=== PATIENT | female | born 1995 | race Caucasian/White ===

== ENCOUNTER 2016-12-13 19:41 | Inpatient (IN) | payer BC ==
[2016-12-13] MEDS ORDERED: ONDANSETRON HCL INJ/PF 4 MG/2 ML SDV ONE (19:47)
[2016-12-13] MEDS ORDERED: ONDANSETRON HCL INJ/PF 4 MG/2 ML SDV IV ONE (19:50)
[2016-12-13] MEDS ORDERED: NORMAL SALINE 1000 ML 1,000 ML IV ONE (19:50)
[2016-12-13] MEDS ORDERED: MAGNESIUM SULFATE/D5W 2 GM/200 ML RTUPB IV ONE (19:56)
[2016-12-13] MEDS ORDERED: IBUPROFEN 600 MG TABLET PO ONE (19:57)
[2016-12-13 19:58] LABS: ABSOLUTE LYMPHOCYTES (AUTO) 1.5 10^3/uL (0.5-4.7); ABSOLUTE MONOCYTES (AUTO) 0.8 10^3/uL (0.1-1.4); ABSOLUTE NEUT (AUTO) 7.9 10^3/uL (1.7-8.2); BASOPHILS % (AUTO) 0.4 % (0-2); EOSINOPHILS % (AUTO) 0.4 % (0-6); HEMATOCRIT 41.1 % (36.0-47.0); HEMOGLOBIN 13.6 g/dL (12.0-15.5); HGB HCT DIFFERENCE -0.3; LYMPHOCYTES % (AUTO) 14.3 % (13-45); MEAN CORPUSCULAR HEMOGLOBIN 27.2 pg (27.0-33.4); MEAN CORPUSCULAR HGB CONC 33.2 g/dL (32.0-36.0); MEAN CORPUSCULAR VOLUME 82 fl (80-97); MONOCYTES % (AUTO) 7.6 % (3-13); RED BLOOD COUNT 5.01 10^6/uL (3.72-5.28); RED CELL DISTRIBUTION WIDTH 13.5 % (11.5-14.0); SEGMENTED NEUTROPHILS % (AUTO) 77.3 % (42-78); WHITE BLOOD COUNT 10.2 10^3/uL (4.0-10.5)
[2016-12-13] MEDS ORDERED: ALBUTEROL SULFATE 0.083% NEB 2.5 MG/3 ML AMPUL NEB ONE ×3 (19:58→21:29)
[2016-12-13] MEDS ORDERED: ACETAMINOPHEN 325 MG TABLET ONE (19:59)
[2016-12-13] MEDS ORDERED: MAGNESIUM SULFATE/D5W 100 ML IV SCH (20:00)
--- NOTE | 2016-12-13 20:00 | ER Document Report ---
ED General - General Stated Complaint: BREATHING DIFFICULTY Cannot obtain history due to: Unstable vital signs Notes: Patient is a 21-year-old female with past medical history of what appears to be an asthma exacerbation approximately one year ago that required intubation and prolonged hospitalization presents with 2 days of progressively worsening shortness of breath now to the point where she feels that she cannot breathe. History is limited secondary to patient's severe respiratory distress at time of assessment. She states this feels much when she required intubation in the past. She has not had any fever, vomiting or diaphoresis. She is not using anything to treat her symptoms at home. Nothing is been noted to worsen her symptoms. She is not seen in her primary care doctor regarding today's concerns. - Related Data Allergies/Adverse Reactions: oxycodone Allergy (Verified 12/13/16 20:40) Home Medications: Current Home Medications Fluoxetine HCl [Prozac] 60 mg PO DAILY 12/13/16 [History] Metformin HCl 500 mg PO BID 12/13/16 [History] Past Medical History - General Information source: Patient - Social History Smoking Status: Never Smoker Frequency of alcohol use: None Drug Abuse: None Family History: Reviewed & Not Pertinent Review of Systems - Review of Systems Notes: Constitutional: Negative for fever. HENT: Negative for sore throat. Eyes: Negative for visual changes. Cardiovascular: Negative for chest pain. Respiratory: Positive for shortness of breath. Gastrointestinal: Negative for abdominal pain, vomiting or diarrhea. Genitourinary: Negative for dysuria. Musculoskeletal: Negative for back pain. Skin: Negative for rash. Neurological: Negative for headaches, weakness or numbness. 10 point ROS negative except as marked above and in HPI. Physical Exam - Vital signs Vitals: Temp Resp Pulse Ox 99.6 F 36 H 96 12/13/16 19:57 12/13/16 19:57 12/13/16 19:57 Interpretation: Tachycardic, Tachypneic Notes: PHYSICAL EXAMINATION: GENERAL: In severe respiratory distress HEAD: Atraumatic, normocephalic. EYES: Pupils equal round and reactive to light, extraocular movements intact, sclera anicteric, conjunctiva are normal. ENT: nares patent, oropharynx clear without exudates. Dry mucous membranes. NECK: Normal range of motion, supple without lymphadenopathy LUNGS: Tight air movement bilaterally with wheezing in all lung dale and expiratory phase. Severe tachypnea with respiratory rate of 42 at the time of initial assessment. HEART: Regular tachycardia without murmurs ABDOMEN: Soft, nontender, normoactive bowel sounds. No guarding, no rebound. No masses appreciated. EXTREMITIES: Normal range of motion, no pitting or edema. No cyanosis. NEUROLOGICAL: No focal neurological deficits. Moves all extremities spontaneously and on command. PSYCH: Anxious SKIN: Warm, Dry, normal turgor, no rashes or lesions noted. Course - Re-evaluation Re-evalutation: 12/13/16 19:59 Patient presents in moderate respiratory distress with tachypnea, respiratory rate is 32 at the time of my assessment. She is retracting in the supraclavicular region. She has poor air movement bilaterally with a prolonged expiratory phase and severe expiratory wheezing in all lung dale. She has required intubation in the past for similar presentation. Immediately upon my assessment, patient was started on continuous albuterol nebulizers. She has already received 2 DuoNeb's. She has already received 125 of IV Solu-Medrol. She will be given 2 g of magnesium over 20 minutes. IV fluids have been started. Patient has been placed on a wardrobe specialty worker and a stat portable chest x-ray to be obtained. Patient is critically ill at this time due to respiratory distress and is at elevated risk for respiratory compromise and decompensation. She will require frequent reassessments. 12/13/16 20:11 Patient's respiratory effort is acting slightly worsened, now breathing at 38- 40 times a minute. Maintains her oxygen saturation at 100% at this time. She will be started on BiPAP with in-line. Magnesium is being initiated at this time. EKG demonstrates sinus tachycardia otherwise unremarkable. 12/13/16 20:22 Patient's work of breathing continues to be elevated and she is quite anxious. She is moving air much better now on BiPAP and her wheezing is now diminished relative to the initial presentation. Given her anxiety and difficulty tolerating the BiPAP, will give a low dose of ketamine 10 mg IV 12/13/16 21:00 Patient had significant improvement of her work of breathing with a low dose of ketamine states that her anxiety about BiPAP is also much better at this time. Air movement has improved dramatically relative to her initial presentation. Continues with wheezing in all lung dale on the x-ray phase. Will continue to observe on BiPAP 2127-after the initial 20 mg of albuterol had completed come patient is now complaining that her breathing is again worsening and she feels more tight. Lung exam is overall unchanged. Will start an additional 10 mg of albuterol inhaled and then additional low-dose of IV ketamine 12/13/16 21:43 Patient now has clear breath sounds bilaterally and excellent air movement. She continues to be mildly tachypneic, respiratory rate is 32 at time of my assessment. She still is only able to talk 3-4 words without requiring of breath. However, overall her picture is much improved relative to her initial presentation. She will require admission and I discussed this case with Dr. Florencio Schmidt who has accepted the patient. - Vital Signs Vital signs: Temp Pulse Resp BP Pulse Ox 98.9 F 123 H 26 H 109/40 L 99 12/13/16 23:12 12/13/16 23:12 12/13/16 23:12 12/13/16 23:12 12/13/16 23:12 - Laboratory Result Diagrams: 12/13/16 19:47 12/13/16 19:47 Laboratory results interpreted by me: 12/13/16 12/13/16 19:47 21:43 VBG pCO2 25.9 L VBG HCO3 15.6 L Calcium 10.3 H AST 97 H ALT 125 H Total Protein 8.6 H - Diagnostic Test Radiology reviewed: Image reviewed, Reports reviewed Radiology results interpreted by me: 12/13/16 21:44 Chest x-ray: No acute infiltrate - EKG Interpretation by Me Additional EKG results interpreted by me: 12/13/16 20:12 Sinus tachycardia. Rate 143. No ST elevations or depressions. QTC 426. Critical Care Note - Critical Care Note Total time excluding time spent on procedures (mins): 40 Comments: Critical care time spent obtaining history from patient or surrogate, discussions with consultants, development of treatment plan with patient or surrogate, evaluation of patient's response to treatment, examination of patient , ordering and performing treatments and interventions, ordering and review of laboratory studies, re-evaluation of patient's condition, ordering and review of radiographic studies and review of old charts Discharge - Discharge Clinical Impression: Respiratory distress, Asthma exacerbation Disposition: ADMITTED INPATIENT Admitting Provider: [facility] Admitted: Telemetry
[2016-12-13 20:11] LABS: ALANINE AMINOTRANSFERASE 125 U/L (9-52); ALBUMIN 4.8 g/dL (3.5-5.0); ALKALINE PHOSPHATASE 71 U/L (38-126); ANION GAP 15 (5-19); ASPARTATE AMINO TRANSFERASE 97 U/L (14-36); BILIRUBIN,TOTAL 0.7 mg/dL (0.2-1.3); BLOOD UREA NITROGEN 8 mg/dL (7-20); CALCIUM 10.3 mg/dL (8.4-10.2); CARBON DIOXIDE 25 mmol/L (22-30); CHLORIDE 101 mmol/L (98-107); CREATININE RESULT 1.14 mg/dL (0.52-1.25); GLUCOSE 103 mg/dL (75-110); POTASSIUM 3.8 mmol/L (3.6-5.0); TOTAL PROTEIN 8.6 g/dL (6.3-8.2)
[2016-12-13] MEDS ORDERED: KETAMINE HCL INJ 500 MG/10 ML VIAL ONE (20:21)
[2016-12-13] MEDS ORDERED: KETAMINE HCL INJ 500 MG/10 ML VIAL IV ONE ×2 (20:22→21:28)
[2016-12-13] MEDS ORDERED: LACTULOSE SYRUP 20 GM/30 ML UDCUP PO ONE (21:45)
[2016-12-13] MEDS ORDERED: IPRATROPIUM/ALBUTEROL 0.5-2.5 MG/3 ML AMPUL NEB PRN (21:45)
[2016-12-13] MEDS ORDERED: ACETAMINOPHEN 325 MG TABLET PO PRN (21:46)
[2016-12-13] MEDS ORDERED: GUAIFENESIN SYRP 200 MG/10 ML UDC PO PRN (21:46)
[2016-12-13 21:50] LABS: VENOUS BLOOD BASE EXCESS -7.5 mmol/L; VENOUS BLOOD HCO3 15.6 mmol/L (20-32); VENOUS BLOOD PCO2 25.9 mmHg (35-63); VENOUS BLOOD PH 7.4 (7.30-7.42)
[2016-12-13] MEDS: FLUTICASONE NASAL SPRAY 50 MCG/SPRY 120 SPRAY/16 GM NASL SCH (22:25)
[2016-12-13] MEDS: HEPARIN SOD (PORCINE) 5,000 UNIT/ML 1 ML SYRINGE SUBCUT SCH (22:27)
[2016-12-13] MEDS: METHYLPREDNISOLONE INJ 125 MG/2 ML SDV IV SCH (22:31)
[2016-12-14] MEDS ORDERED: GLUCAGON,HUMAN RECOMB 1 MG INJ IM PRN (01:08)
[2016-12-14] MEDS ORDERED: DEXTROSE 50%-WATER 25 GM/50 ML DISP.SYRIN IV PRN ×2 (01:08)
[2016-12-14] MEDS ORDERED: DEXTROSE 40% GEL 15 GM TUBE PO PRN ×2 (01:08)
[2016-12-14] MEDS ORDERED: CLINDAMYCIN 900 MG/D5W RTU 50 ML IV ONE (01:30)
[2016-12-14] MEDS: IPRATROPIUM/ALBUTEROL 0.5-2.5 MG/3 ML AMPUL NEB SCH ×4 (02:16→21:26)
--- NOTE | 2016-12-14 04:48 | PDOC H&P ---
History of Present Illness Admission Date/PCP: 12/13/16 21:46 Patient complains of: Shortness of breath History of Present Illness: YARITZA VALENCIA is a 21 year old female with a past medical history of diabetes and obesity who had been her usual state of health until approximately 1 hour prior to presentation with severe shortness of breath and expiratory wheeze. Patient had recently recovered from influenza pneumonia within the week and has had a residual soreness to the anterior neck without drooling or stridor. In the emergency room she received several albuterol treatments in addition to magnesium and ketamine and was transferred to the hospitalist for admission. Patient denies new medication, previous episode, exposure to any smoke or obvious trigger. On evaluation she does have mild upper airway wheeze that clears with maximal respiratory effort on auscultation. Past Medical History Cardiac Medical History: Reports: None Pulmonary Medical History: Reports: None EENT Medical History: Reports: None Neurological Medical History: Reports: None Endocrine Medical History: Reports: Diabetes Mellitus Type 2, Obesity Renal/ Medical History: Reports: None Malignancy Medical History: Reports: None GI Medical History: Reports: None Musculoskeltal Medical History: Reports: None Skin Medical History: Reports: None Psychiatric Medical History: Reports: None, Depression Social History Information Source: Patient Lives with: Family Smoking Status: Never Smoker Frequency of Alcohol Use: None Hx Recreational Drug Use: No Hx Prescription Drug Abuse: No - Advance Directive Resuscitation Status: Full Code Family History Family History: Hypertension Parental Family History Reviewed: Yes Children Family History Reviewed: Yes Sibling(s) Family History Reviewed.: Yes Medication/Allergy Home Medications: Fluoxetine HCl [Prozac] 60 mg PO DAILY 12/13/16 Metformin HCl 500 mg PO BID 12/13/16 Allergies/Adverse Reactions: oxycodone Allergy (Verified 12/13/16 20:40) Review of Systems Constitutional: ABSENT: chills, fever(s), headache(s), weight gain, weight loss Eyes: ABSENT: visual disturbances Ears: ABSENT: hearing changes Cardiovascular: ABSENT: chest pain, dyspnea on exertion, edema, orthropnea, palpitations Respiratory: ABSENT: cough, hemoptysis Gastrointestinal: ABSENT: abdominal pain, constipation, diarrhea, hematemesis, hematochezia, nausea, vomiting Genitourinary: ABSENT: dysuria, hematuria Musculoskeletal: ABSENT: joint swelling Integumentary: ABSENT: rash, wounds Neurological: ABSENT: abnormal gait, abnormal speech, confusion, dizziness, focal weakness, syncope Psychiatric: ABSENT: anxiety, depression, homidical ideation, suicidal ideation Endocrine: ABSENT: cold intolerance, heat intolerance, polydipsia, polyuria Hematologic/Lymphatic: ABSENT: easy bleeding, easy bruising Physical Exam Vital Signs: Temp Pulse Resp BP Pulse Ox 98.9 F 123 H 26 H 109/40 L 99 12/13/16 23:12 12/13/16 23:12 12/13/16 23:12 12/13/16 23:12 12/13/16 23:12 Intake & Output 12/12/16 12/13/16 12/14/16 11:59 11:59 11:59 Weight 102.5 kg General appearance: PRESENT: no acute distress, cooperative, obese, well- developed, well-nourished Head exam: PRESENT: atraumatic, normocephalic Eye exam: PRESENT: conjunctiva pink, EOMI, PERRLA. ABSENT: scleral icterus Ear exam: PRESENT: normal external ear exam Mouth exam: PRESENT: moist, tongue midline Neck exam: PRESENT: tenderness - Pain to palpation of the anterior cricothyroid. ABSENT: carotid bruit, JVD, lymphadenopathy, thyromegaly Respiratory exam: PRESENT: clear to auscultation amanda, tachypnea. ABSENT: accessory muscle use, prolonged expiratory phas, rales, retraction, rhonchi, wheezes Cardiovascular exam: PRESENT: RRR. ABSENT: diastolic murmur, rubs, systolic murmur Pulses: PRESENT: normal dorsalis pedis pul Vascular exam: PRESENT: normal capillary refill GI/Abdominal exam: PRESENT: normal bowel sounds, soft. ABSENT: distended, guarding, mass, organolmegaly, rebound, tenderness Rectal exam: PRESENT: deferred Extremities exam: PRESENT: full ROM. ABSENT: calf tenderness, clubbing, pedal edema Neurological exam: PRESENT: alert, awake, oriented to person, oriented to place , oriented to time, oriented to situation, CN II-XII grossly intact. ABSENT: motor sensory deficit Psychiatric exam: PRESENT: appropriate affect, normal mood. ABSENT: homicidal ideation, suicidal ideation Skin exam: PRESENT: dry, intact, warm. ABSENT: cyanosis, rash Results Impressions: Chest X-Ray 12/13/16 19:57 IMPRESSION: LOW LUNG VOLUMES. NO SIGNIFICANT RADIOGRAPHIC FINDING IN THE CHEST. Soft Tissue Neck X-Ray 12/14/16 00:00 IMPRESSION: No acute radiographic finding in the soft tissues of the neck. Assessment & Plan - Diagnosis (1) Epiglottitis Is this a current diagnosis for this admission?: YesPlan: Patient was with recent viral prodrome suspect viral epiglottitis however given the chance of decompensation complicated by morbid obesity and diabetes I will treat empirically with clindamycin and obtain soft tissue imaging of the neck. And treat symptomatically (2) Asthma exacerbation Is this a current diagnosis for this admission?: YesPlan: Doubtful given new onset of asthma and lack of expiratory wheeze with exam that said she'll receive symptomatically management with albuterol when necessary (3) Respiratory distress Is this a current diagnosis for this admission?: YesPlan: Symptomatic management with correction of the underlying cause - Time Time Spent: 30 to 50 Minutes
[2016-12-14] MEDS: HEPARIN SOD (PORCINE) 5,000 UNIT/ML 1 ML SYRINGE SUBCUT SCH ×3 (05:12→22:37)
[2016-12-14] MEDS: METHYLPREDNISOLONE INJ 125 MG/2 ML SDV IV SCH ×3 (05:13→22:37)
[2016-12-14] MEDS: LANSOPRAZOLE 30 MG TAB.RAP.DR PO SCH ×2 (05:13→17:09)
[2016-12-14] MEDS ORDERED: FAMOTIDINE INJ/PF 20 MG/2 ML SDV IV ONE ×2 (05:22→05:32)
[2016-12-14] MEDS ORDERED: KETOROLAC TROMETHAMINE INJ/PF 30 MG/1 ML SDV IV ONE (05:23)
[2016-12-14] MEDS ORDERED: KETOROLAC TROMETHAMINE INJ/PF 30 MG/1 ML SDV ONE (05:33)
[2016-12-14] MEDS: INSULIN LISPRO 100 UNIT/ML 3 ML VIAL SUBCUT PRN ×4 (05:39→22:41)
[2016-12-14 06:32] LABS: HEMATOCRIT 36.5 % (36.0-47.0); HEMOGLOBIN 11.6 g/dL (12.0-15.5); HGB HCT DIFFERENCE -1.7; MEAN CORPUSCULAR HEMOGLOBIN 26.3 pg (27.0-33.4); MEAN CORPUSCULAR HGB CONC 31.7 g/dL (32.0-36.0); MEAN CORPUSCULAR VOLUME 83 fl (80-97); RED CELL DISTRIBUTION WIDTH 13.4 % (11.5-14.0); WHITE BLOOD COUNT 13.3 10^3/uL (4.0-10.5)
[2016-12-14 06:45] LABS: ANION GAP 15 (5-19); BLOOD UREA NITROGEN 9 mg/dL (7-20); CALCIUM 9.5 mg/dL (8.4-10.2); CARBON DIOXIDE 18 mmol/L (22-30); CHLORIDE 107 mmol/L (98-107); CREATININE RESULT 0.97 mg/dL (0.52-1.25); GLUCOSE 275 mg/dL (75-110); SODIUM 139.9 mmol/L (137-145)
[2016-12-14 07:13] LABS: POTASSIUM 4.9 mmol/L (3.6-5.0)
[2016-12-14] MEDS ORDERED: CLINDAMYCIN 900 MG/D5W RTU 50 ML IV SCH (08:00)
--- NOTE | 2016-12-14 08:25 | EKG REPORT ---
SEVERITY:- OTHERWISE NORMAL ECG - SINUS TACHYCARDIA : Confirmed by: Kaden Wolf MD 14-Dec-2016 08:24:51
[2016-12-14] MEDS: FLUTICASONE NASAL SPRAY 50 MCG/SPRY 120 SPRAY/16 GM NASL SCH ×2 (11:01→22:38)
[2016-12-14] MEDS: METFORMIN HCL 500 MG TABLET PO SCH ×2 (11:01→17:09)
[2016-12-14] MEDS: LORATADINE 10 MG TABLET PO SCH (11:02)
[2016-12-14] MEDS: FLUOXETINE HCL 20 MG CAPSULE PO SCH (11:02)
[2016-12-14] MEDS: CLINDAMYCIN 900 MG/D5W RTU 50 ML IV SCH ×2 (14:37→22:37)
--- NOTE | 2016-12-14 16:55 | PDOC PROGRESS REPORT ---
Subjective Progress Note for:: 12/14/16 Subjective:: Patient seen on morning rounds. She is resting comfortably in bed. She is no longer on oxygen. Her room oxygen saturation 97%. She states her throat no longer feels like it is closing in. She denies any asthma history. She states she did have flu like symptoms last week. She was recovering from that. She felt yesterday like her throat was closing off it was difficult for her to breathe. She no longer has a feeling at this time. Physical Exam Vital Signs: Temp Pulse Resp BP Pulse Ox 98.0 F 84 20 108/38 L 98 12/14/16 11:49 12/14/16 11:49 12/14/16 11:49 12/14/16 11:49 12/14/16 11:49 Intake & Output 12/13/16 12/14/16 12/15/16 06:59 06:59 06:59 Intake Total 50 Balance 50 Weight 102.5 kg General appearance: PRESENT: no acute distress, obese, well-developed, well- nourished Head exam: PRESENT: atraumatic, normocephalic Eye exam: PRESENT: conjunctiva pink, EOMI, PERRLA. ABSENT: scleral icterus Ear exam: PRESENT: normal external ear exam Mouth exam: PRESENT: moist, tongue midline Throat exam: PRESENT: post pharyngeal erythema Neck exam: ABSENT: carotid bruit, JVD, lymphadenopathy, thyromegaly Respiratory exam: PRESENT: clear to auscultation amanda. ABSENT: rales, rhonchi, wheezes Cardiovascular exam: PRESENT: RRR. ABSENT: diastolic murmur, rubs, systolic murmur Pulses: PRESENT: normal dorsalis pedis pul GI/Abdominal exam: PRESENT: normal bowel sounds, soft. ABSENT: distended, guarding, mass, organolmegaly, rebound, tenderness Rectal exam: PRESENT: deferred Extremities exam: PRESENT: full ROM. ABSENT: calf tenderness, clubbing, pedal edema Neurological exam: PRESENT: alert, awake, oriented to person, oriented to place , oriented to time, oriented to situation, CN II-XII grossly intact. ABSENT: motor sensory deficit Psychiatric exam: PRESENT: appropriate affect, normal mood. ABSENT: homicidal ideation, suicidal ideation Skin exam: PRESENT: dry, intact, warm. ABSENT: cyanosis, rash Results Laboratory Results: 12/14/16 06:21 12/14/16 06:21 12/14/16 12/14/16 06:21 06:21 WBC 13.3 H RBC 4.40 Hgb 11.6 L Hct 36.5 MCV 83 MCH 26.3 L MCHC 31.7 L RDW 13.4 Plt Count 278 Sodium 139.9 Potassium 4.9 D Chloride 107 Carbon Dioxide 18 L Anion Gap 15 BUN 9 Creatinine 0.97 Est GFR ( Amer) > 60 Est GFR (Non-Af Amer) > 60 Glucose 275 H Calcium 9.5 Impressions: Chest X-Ray 12/13/16 19:57 IMPRESSION: LOW LUNG VOLUMES. NO SIGNIFICANT RADIOGRAPHIC FINDING IN THE CHEST. Soft Tissue Neck X-Ray 12/14/16 00:00 IMPRESSION: No acute radiographic finding in the soft tissues of the neck. Assessment & Plan - Diagnosis (1) Epiglottitis Is this a current diagnosis for this admission?: YesPlan: Continue IV steroids today d/c tomorrow if she continues to be asymptomatic. Continue clindamycin. (2) Respiratory distress Is this a current diagnosis for this admission?: YesPlan: Symptoms have completely resolved. Lungs are clear. - Time Time Spent with patient: 25-34 minutes Critical Time spent with patient: 15-24 minutes Medications reviewed and adjusted accordingly: Yes Anticipated discharge: Home
[2016-12-15] MEDS: IPRATROPIUM/ALBUTEROL 0.5-2.5 MG/3 ML AMPUL NEB SCH ×2 (02:22→08:38)
[2016-12-15] MEDS: METHYLPREDNISOLONE INJ 125 MG/2 ML SDV IV SCH (06:39)
[2016-12-15] MEDS: CLINDAMYCIN 900 MG/D5W RTU 50 ML IV SCH (06:39)
[2016-12-15] MEDS: LANSOPRAZOLE 30 MG TAB.RAP.DR PO SCH (06:40)
[2016-12-15] MEDS: HEPARIN SOD (PORCINE) 5,000 UNIT/ML 1 ML SYRINGE SUBCUT SCH (06:40)
[2016-12-15 07:53] VITALS: BP 126/70
[2016-12-15] MEDS: FLUOXETINE HCL 20 MG CAPSULE PO SCH (10:12)
[2016-12-15] MEDS: LORATADINE 10 MG TABLET PO SCH (10:12)
[2016-12-15] MEDS: FLUTICASONE NASAL SPRAY 50 MCG/SPRY 120 SPRAY/16 GM NASL SCH (10:12)
[2016-12-15] MEDS: METFORMIN HCL 500 MG TABLET PO SCH (10:13)
[2016-12-15] MEDS: INSULIN LISPRO 100 UNIT/ML 3 ML VIAL SUBCUT PRN (11:29)
--- NOTE | 2016-12-15 14:12 | PDOC DISCHARGE SUMMARY ---
General - Admit/Disc Date/PCP Admission Date/Primary Care Provider: 12/13/16 21:46 Discharge Date: 12/15/16 - Discharge Diagnosis (1) Epiglottitis Is this a current diagnosis for this admission?: YesSummary: Resolved with steroids and IV antibiotics (2) Respiratory distress Is this a current diagnosis for this admission?: YesSummary: Resolved - Additional Information Resuscitation Status: Full Code Discharge Diet: Diabetic Discharge Activity: Activity As Tolerated Home Medications: Fluoxetine HCl [Prozac] 60 mg PO DAILY 12/13/16 Metformin HCl 500 mg PO BID 12/13/16 Amox Tr/Potassium Clavulanate [Augmentin 875-125 mg Tablet] 1 tab PO BID #20 tablet 12/15/16 Loratadine [Claritin 10 mg Tablet] 10 mg PO DAILY tablet 12/15/16 History of Present Illness Patient complains of: Shortness of breath History of Present Illness: YARITZA VALENCIA is a 21 year old female with past medical history of diabetes and obesity who had been in her usual state of health until approximately 1 hour prior to her presentation at [facility] emergency department on 12/13/2016. Patient states she had recently recovered from the flu week prior. She said she was drooling feeling like her throat was closing with some stridor when he presented to the emergency room. She is very tachypneic with a respiratory rate in the 40s although oxygenating at 100%. She had diminished breath sounds and tachycardia. She was placed on BiPAP and referred to the hospitalist for admission. Hospital Course Hospital Course: She was admitted to the telemetry unit. She was given IV steroids and clindamycin IV overnight. The following morning she had no further stridor, no difficulty swallowing. She was able to be on room air with oxygen saturations of 100%. She had no wheezing or cough. Today she feels well stable, and ready for discharge. Physical Exam Vital Signs: Temp Pulse Resp BP Pulse Ox 97.9 F 73 20 126/70 H 99 12/15/16 11:26 12/15/16 11:26 12/15/16 11:26 12/15/16 11:26 12/15/16 11:26 Intake & Output 12/14/16 12/15/16 12/16/16 06:59 06:59 06:59 Intake Total 50 1674 Balance 50 1674 Weight 102.5 kg 102.5 kg General appearance: PRESENT: no acute distress, obese, well-developed, well- nourished Head exam: PRESENT: atraumatic Eye exam: PRESENT: conjunctiva pink, EOMI, PERRLA. ABSENT: scleral icterus Ear exam: PRESENT: normal external ear exam Mouth exam: PRESENT: moist, tongue midline Throat exam: ABSENT: post pharyngeal erythema, tonsillar erythema, tonsillar exudate, tonsillogmegaly, other Neck exam: ABSENT: carotid bruit, JVD, lymphadenopathy, thyromegaly Respiratory exam: PRESENT: clear to auscultation amanda. ABSENT: rales, rhonchi, wheezes Cardiovascular exam: PRESENT: RRR. ABSENT: diastolic murmur, rubs, systolic murmur Pulses: PRESENT: normal dorsalis pedis pul Vascular exam: PRESENT: normal capillary refill Rectal exam: PRESENT: deferred Extremities exam: PRESENT: full ROM. ABSENT: calf tenderness, clubbing, pedal edema Neurological exam: PRESENT: alert, awake, oriented to person, oriented to place , oriented to time, oriented to situation, CN II-XII grossly intact. ABSENT: motor sensory deficit Psychiatric exam: PRESENT: appropriate affect, normal mood. ABSENT: homicidal ideation, suicidal ideation Skin exam: PRESENT: dry, intact, warm. ABSENT: cyanosis, rash Results Laboratory Results: 12/14/16 06:21 12/14/16 06:21 Impressions: Chest X-Ray 12/13/16 19:57 IMPRESSION: LOW LUNG VOLUMES. NO SIGNIFICANT RADIOGRAPHIC FINDING IN THE CHEST. Soft Tissue Neck X-Ray 12/14/16 00:00 IMPRESSION: No acute radiographic finding in the soft tissues of the neck. Qualifiers PATEINT BEING DISCHARGED WITH ANY OF THE FOLLOWING DIAGNOSIS?: No Plan Discharge Plan: Discharge home with family. Follow-up with primary care 1 week. Time Spent: Less than 30 Minutes
== END 2016-12-15 11:35 | disposition home or self-care (01) | DRG 153 ==
LOC: ER 19:41 → EH 21:46 → UNDOADMIN 22:23 → EH 22:23 → 5 23:02
PROVIDERS: ADMIT Internal Medicine; ATTEND Internal Medicine
PROC: 3E0F73Z Introduction of Anti-inflammatory into Respiratory Tract, Via Natural or Artificial Opening (ICD-10-PCS; 2016-12-13)
PROC: 5A09357 Assistance with Respiratory Ventilation, Less than 24 Consecutive Hours, Continuous Positive Airway Pressure (ICD-10-PCS; principal; 2016-12-14)
DX: J05.10 Acute epiglottitis without obstruction (principal); E11.9 Type 2 diabetes mellitus without complications; E66.9 Obesity, unspecified; Z68.38 Body mass index [BMI] 38.0-38.9, adult; F32.9 Major depressive disorder, single episode, unspecified; R00.0 Tachycardia, unspecified; F41.9 Anxiety disorder, unspecified; Z79.899 Other long term (current) drug therapy; Z88.6 Allergy status to analgesic agent; Z82.49 Family history of ischemic heart disease and other diseases of the circulatory system
CPT/HCPCS: 36415; 70360; 71010; 80048; 80053; 82803; 82962; 84703; 85025; 85027; 93005; 93010; 94640; 94660; 96365; 96375; 99291; J1644; J1815; J1885; J2405; J2930; J3475; J3490; J7030; J7620; S0028